=== PATIENT | female | born 1965 | race Caucasian/White ===

== ENCOUNTER → 2017-03-19 | Outpatient (CLI) | payer MEDICAID ==
--- NOTE | 2017-03-20 13:04 | BD ---
EXAMINATION TYPE: MG DEXA axial skeleton. DATE OF EXAM: 03/19/2017 COMPARISON: NONE CLINICAL HISTORY: PATIENT IS A 51 YR OLD FEMALE; N95.1 POST MENOPAUSAL Height: 63 Weight: 181 FRAX RISK QUESTIONS: Alcohol (3 or more units per day): NO Family History (Parent hip fracture): NO Glucocorticoids (More than 3mos): NO (Ex: prednisone, prednisolone, methylprednisolone, dexamethasone, and hydrocortisone). History of Fracture in Adulthood: NO Secondary Osteoporosis: NO 1. Type 1 Diabetes: NO 2. Hyperthyroidism: NO 3. Menopause before 45: NO 4. Malnutrition: NO 5. Chronic liver disease: NO Rheumatoid Arthritis: NO Current Tobacco Use: NO RISK FACTORS HISTORY OF: Family History of Osteoporosis: NONE KNOWN Active: YES Diet low in dairy products/other sources of calcium: NO Postmenopausal woman: HYST AT AGE 42 YRS OLD, STILL HAVE OVARIES Hyperparathyroidism: NO Adrenal Insufficiency: NO MEDICATIONS: Additional Medications: REFLUX MEDS PRN, Additional History: NONE TO NOTE EXAM MEASUREMENTS: Bone mineral densitometry was performed using the CPower System. Bone mineral density as measured about the Lumbar spine is: ----- L1-L4(G/cm2): 1.652 T Score Values are as follows: ----- L1: 3.0 ----- L2: 3.8 ----- L3: 4.8 ----- L4: 3.9 ----- L1-L4: 3.9 Bone mineral density FIRST BONE DENSITY STUDY FOR HER....BASELINE Bone mineral density about the R hip (g/cm2): 1.373 Bone mineral density about the L hip (g/cm2): 1.391 T Score values are as follows: -----R Neck: 2.5 -----L Neck: 2.3 -----R Total: 2.9 -----L Total: 3.0 Bone mineral density BASELINE STUDY FOR HER FRAX %'S: THERE IS A 3.6% CHANCE OF MAJOR OSTEOPOROTIC FX AND A 0.0% OF HIP FX...PROBABILITY OF FX IN 10 YRS TIME IMPRESSION: Normal (Values between +1 and -1 indicate normal bone mass). Consider repeating this study in 5 year s or sooner if there is some new clinical indication. FOR BOTH HIPS AND LUMBAR SPINE NOTE: T-SCORE=SD OF THE YOUNG ADULT MEAN.
--- NOTE | 2017-03-20 14:29 | MM ---
Reason for exam: screening (asymptomatic). Last mammogram was performed 1 year and 2 months ago. History: Patient is postmenopausal. Physical Findings: A clinical breast exam by your physician is recommended on an annual basis and results should be correlated with mammographic findings. MG 3D Screening Mammo W/Cad Bilateral CC and MLO view(s) were taken. Prior study comparison: February 02, 2016, bilateral MG 3d screening mammo w/cad. July 23, 2014, bilateral MG screening mammo w CAD. The breast tissue is extremely dense which could obscure a lesion on mammography. Finding: There are coarse heterogeneous, grouped/clustered calcifications in the middle position of the left breast 2cm from the nipple. There is a chronic nodularity bilaterally. New finding since February 02, 2016 and July 23, 2014. ASSESSMENT: Incomplete: need additional imaging evaluation, BI-RAD 0 RECOMMENDATION: Special view mammogram of the left breast. [facility] will attempt to contact patient to return for supplemental views.
== END | disposition home or self-care (01) ==
LOC: RADMAMWWP 06:58
PROVIDERS: ATTEND Obstetrics & Gynecology
DX: Z12.31 Encounter for screening mammogram for malignant neoplasm of breast (principal); N95.1 Menopausal and female climacteric states
CPT/HCPCS: 77080; 77063; G0202

== ENCOUNTER → 2017-03-22 | Outpatient (CLI) | payer MEDICAID ==
--- NOTE | 2017-03-22 09:16 | MM ---
Reason for exam: additional evaluation requested from abnormal screening. Last mammogram was performed less than 1 month ago. Physical Findings: Nurse did not find any significant physical abnormalities on exam. MG Work Up Mamm w CAD LT CC with magnification, LM with magnification, and LM view(s) were taken of the left breast. Prior study comparison: March 19, 2017, bilateral MG 3d screening mammo w/cad. February 02, 2016, bilateral MG 3d screening mammo w/cad. The breast tissue is extremely dense which could obscure a lesion on mammography. Finding: There are typically benign calcifications in the left breast. There is a chronic nodularity in the left breast. These results were verbally communicated with the patient and result sheet given to the patient on 03/22/17. ASSESSMENT: Probably benign, BI-RAD 3 RECOMMENDATION: Follow-up diagnostic mammogram of the left breast in 6 months.
== END | disposition home or self-care (01) ==
LOC: RADMAMWWP 08:23
PROVIDERS: ATTEND Obstetrics & Gynecology
DX: R92.8 Other abnormal and inconclusive findings on diagnostic imaging of breast (principal)

== ENCOUNTER → 2018-07-17 | Outpatient (CLI) | payer MEDICAID ==
--- NOTE | 2018-07-18 08:15 | MM ---
Reason for exam: screening (asymptomatic). Last mammogram was performed 1 year and 4 months ago. Physical Findings: A clinical breast exam by your physician is recommended on an annual basis and results should be correlated with mammographic findings. MG 3D Screening Mammo W/Cad Bilateral CC and MLO view(s) were taken. Prior study comparison: March 22, 2017, left breast MG work up mamm w CAD LT. March 19, 2017, bilateral MG 3d screening mammo w/cad. The breast tissue is heterogeneously dense. This may lower the sensitivity of mammography. There is chronic nodularity bilaterally. No significant changes when compared with prior studies. ASSESSMENT: Benign, BI-RAD 2 RECOMMENDATION: Routine screening mammogram of both breasts in 1 year.
== END | disposition home or self-care (01) ==
LOC: RADMAMWWP 07:03
PROVIDERS: ATTEND Obstetrics & Gynecology
DX: Z12.31 Encounter for screening mammogram for malignant neoplasm of breast (principal)
CPT/HCPCS: 77063; 77067

== ENCOUNTER → 2019-07-28 | Outpatient (CLI) | payer MEDICAID ==
--- NOTE | 2019-07-28 11:28 | MM ---
Reason for exam: screening (asymptomatic). Last mammogram was performed 1 year ago. History: Patient is postmenopausal. Physical Findings: A clinical breast exam by your physician is recommended on an annual basis and results should be correlated with mammographic findings. MG 3D Screening Mammo W/Cad Bilateral CC and MLO view(s) were taken. XCCL view(s) were taken of the right breast. Prior study comparison: July 17, 2018, bilateral MG 3d screening mammo w/cad. March 19, 2017, bilateral MG 3d screening mammo w/cad. February 02, 2016, bilateral MG 3d screening mammo w/cad. The breast tissue is heterogeneously dense. This may lower the sensitivity of mammography. There is chronic nodularity bilaterally. No significant changes when compared with prior studies. ASSESSMENT: Benign, BI-RAD 2 RECOMMENDATION: Routine screening mammogram of both breasts in 1 year.
== END | disposition home or self-care (01) ==
LOC: RADMAMWWP 07:04
PROVIDERS: ATTEND Obstetrics & Gynecology
DX: Z12.31 Encounter for screening mammogram for malignant neoplasm of breast (principal)
CPT/HCPCS: 77063; 77067

== ENCOUNTER → 2019-12-11 | Outpatient (CLI) | payer MEDICAID | END | disposition home or self-care (01) | LOC: LABWHC1 12:11 | PROVIDERS: ATTEND Pediatrics Pediatric Infectious Diseases | DX: Z11.59 Encounter for screening for other viral diseases (principal) | CPT/HCPCS: U0003; C9803 ==

== ENCOUNTER → 2019-12-14 | Outpatient (CLI) | payer MEDICAID | END | disposition home or self-care (01) | LOC: LABWHC1 08:11 | PROVIDERS: ATTEND Pediatrics Pediatric Infectious Diseases | DX: Z11.59 Encounter for screening for other viral diseases (principal) ==

== ENCOUNTER → 2020-01-13 | Outpatient (CLI) | payer MEDICAID ==
--- NOTE | 2020-01-13 14:35 | XR ---
EXAMINATION TYPE: PA chest with left rib series. DATE OF EXAM: 01/13/2020 Comparison: 02/25/2013 Clinical History: 54-year-old female R07.89 Chest Wall Pain TECHNIQUE: 5 views. Findings: Heart normal size. Small left pleural effusion with left basilar opacity. No appreciable pneumothorax . Right lung and pleural space appear clear. Pulmonary vasculature within normal limits. There are fractures of the fourth, sixth, seventh, eighth, ninth ribs. The seventh, eighth, ninth rib fractures are segmental. There is variable nondisplacement to mild displacement to half a shaft's width. Impression: 1. Small left pleural effusion with adjacent atelectasis and/or consolidation. No appreciable pneumot horax. 2. Fractures of the left fourth, sixth, seventh, eighth, and ninth ribs. The seventh, eighth, and macario th rib fractures are segmental fractures. This does not quite meet institutional criteria (which woul d be 4 consecutive levels) for flail chest. Correlate with patient's symptoms.
== END | disposition home or self-care (01) ==
LOC: RADXRMAIN 12:31
PROVIDERS: ATTEND Internal Medicine
DX: S22.42XA Multiple fractures of ribs, left side, initial encounter for closed fracture (principal); J90 Pleural effusion, not elsewhere classified; J98.11 Atelectasis

== ENCOUNTER → 2020-01-27 | Outpatient (CLI) | payer MEDICAID ==
[2020-01-27 08:38] LABS: Basophils # (A) 0.1 k/uL (0-0.2); Basophils % (A) 1 %; Eosinophils # (A) 0.3 k/uL (0-0.7); Eosinophils % (A) 5 %; HCT 41.7 % (34.0-46.0); HGB 13.2 gm/dL (11.4-16.0); Lymphocytes # (A) 2.1 k/uL (1.0-4.8); Lymphocytes % (A) 33 %; MCH 28.2 pg (25.0-35.0); MCHC 31.6 g/dL (31.0-37.0); MCV 89.5 fL (80.0-100.0); Mean Platelet Volume 7.3; Monocytes # (A) 0.4 k/uL (0-1.0); Monocytes % (A) 6 %; Neutrophils # (A) 3.3 k/uL (1.3-7.7); Neutrophils % (A) 51 %; Platelet Count 255 k/uL (150-450); RBC 4.66 m/uL (3.80-5.40); RDW 13.7 % (11.5-15.5); WBC 6.4 k/uL (3.8-10.6)
[2020-01-27 16:36] LABS: African American GFR (CKD) 112.3 (60.0-200.0); Albumin 4.5 g/dL (3.80-4.90); Albumin/Globulin Ratio 1.88 (1.60-3.17); Anion Gap 7.7 mmol/L (4.00-12.00); BUN/Creat Ratio 32.86 Ratio (12.00-20.00); Calcium 9.9 mg/dL (8.7-10.3); Carbon Dioxide 27.3 mmol/L (21.6-31.8); Chol/HDL Ratio 6.1; Globulin 2.4 g/dL (1.6-3.3); LDL Cholesterol,Calculated 163.6 mg/dL (0.0-131.0); Non-African American GFR(CKD) 96.9 (60.0-200.0); Potassium 4.4 mmol/L (3.5-5.5); Total Bilirubin 0.4 mg/dL (0.2-1.2); Total Protein 6.9 g/dL (6.2-8.2); VLDL Calculation 45.4 mg/dL (5.00-40.00)
== END | disposition home or self-care (01) ==
LOC: LABWHC1 07:22
PROVIDERS: ATTEND Internal Medicine
DX: E78.2 Mixed hyperlipidemia (principal); K21.0 Gastro-esophageal reflux disease with esophagitis
CPT/HCPCS: 36415; 80053; 80061; 84443; 85025

== ENCOUNTER → 2021-02-15 | Outpatient (CLI) | payer OTHER ==
--- NOTE | 2021-02-15 14:23 | MM ---
Reason for exam: screening (asymptomatic). Last mammogram was performed 1 year and 7 months ago. History: Patient is postmenopausal. Physical Findings: A clinical breast exam by your physician is recommended on an annual basis and results should be correlated with mammographic findings. MG 3D Screening Mammo W/Cad Bilateral CC and MLO view(s) were taken. Prior study comparison: July 28, 2019, bilateral MG 3d screening mammo w/cad. July 17, 2018, bilateral MG 3d screening mammo w/cad. The breast tissue is heterogeneously dense. This may lower the sensitivity of mammography. There are benign appearing round calcifications bilaterally. There is chronic nodularity in the right breast, stable, smaller and in the left breast, stable, patient calcified. There is no discrete abnormality. ASSESSMENT: Benign, BI-RAD 2 RECOMMENDATION: Routine screening mammogram of both breasts in 1 year.
== END | disposition home or self-care (01) ==
LOC: RADMAMWWP 08:05
PROVIDERS: ATTEND Obstetrics & Gynecology
DX: Z12.31 Encounter for screening mammogram for malignant neoplasm of breast (principal); Z78.0 Asymptomatic menopausal state
CPT/HCPCS: 77063; 77067

== ENCOUNTER → 2021-07-04 | Outpatient (CLI) | payer OTHER ==
--- NOTE | 2021-07-04 12:58 | CT ---
EXAMINATION TYPE: CT sinus wo con DATE OF EXAM: 07/04/2021 COMPARISON: NONE HISTORY: sinusitis CT DLP: 612 mGycm. Automated Exposure Control for Dose Reduction was Utilized. TECHNIQUE: CT scan of the sinuses is performed without contrast, axial images are obtained, coronal r eformatted images are also reviewed. FINDINGS: The paranasal sinuses including the frontal, ethmoid, sphenoid, and maxillary sinuses bila terally are well-aerated without abnormal opacification or suspicious air-fluid levels. There is hyp oplastic or nonformed right frontal sinus The ostiomeatal complex is patent bilaterally on the carter l images. Nasal septum slightly deviated to right of midline. Visualized portion of mastoid air cells show no abnormal opacification. The globes are intact bilate rally. IMPRESSION: The paranasal sinuses are clear and the ostiomeatal complex is patent bilaterally.
== END | disposition home or self-care (01) ==
LOC: RADCTMAIN 12:10
PROVIDERS: ATTEND Otolaryngology
DX: J32.9 Chronic sinusitis, unspecified (principal)
CPT/HCPCS: 70486

== ENCOUNTER → 2022-05-07 | Outpatient (CLI) | payer OTHER ==
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
--- NOTE | 2022-05-08 09:35 | MM ---
Reason for Exam: Screening (asymptomatic). Last mammogram was performed 1 year(s) and 3 month(s) ago. Patient History: Menarche at age 9. First Full-Term at age 25. Hysterectomy at age 43. Postmenopausal. Risk Values: Ginette 5 year model risk: 1.6%. NCI Lifetime model risk: 9.3%. Prior Study Comparison: 07/17/2018 Bilateral Screening Mammogram, [facility]. 07/28/2019 Bilateral Screening Mammogram, [facility]. 02/15/2021 Bilateral Screening Mammogram, [facility]. Tissue Density: The breast tissue is heterogeneously dense. This may lower the sensitivity of mammography. Findings: Analyzed By CAD. There is no suspicious group of microcalcifications or new suspicious mass in either breast. Stable benign-appearing round calcifications bilaterally. Chronic nodularity within both breasts. No significant change from prior exams. Overall Assessment: Benign, BI-RAD 2 Management: Screening Mammogram of both breasts in 1 year. A clinical breast exam by your physician is recommended on an annual basis and results should be correlated with mammographic findings. Electronically signed and approved by: Jony Patel D.O.
== END | disposition home or self-care (01) ==
LOC: RADMAMWWP 07:37
PROVIDERS: ATTEND Internal Medicine
DX: Z12.31 Encounter for screening mammogram for malignant neoplasm of breast (principal); M85.851 Other specified disorders of bone density and structure, right thigh; Z78.0 Asymptomatic menopausal state
CPT/HCPCS: 77063; 77067; 77080

== ENCOUNTER → 2022-05-16 | Outpatient (CLI) | payer OTHER ==
--- NOTE | 2022-05-16 11:20 | CA ---
Exercise Stress Test Report Name: Emma Judd Exam Date: 05/16/2022 09:36 Exam Location: [place] Ht (in): 64 Wt (lb): 195 BSA: 1.94 Ordering Phys: Mauricio Baron MD Referring Phys: Mary Breen DO Technologist: Simba Ramirez Age: 56 Gender: F : 1965 Procedure CPT: Indications: I10 hypertention ICD-10 Codes: Patient History: ELEVATED CHOLESTEROL Medications: BACLOFEN, PRATOPROZOLE, ROSUVASTATIN, ZOLOFT, ZINC, CoCu10 Meds past 24 hrs: Pretest Chest Pain: STRESS TEST [place] Protocol Exercise Duration (min:sec): 09:[address] Depressions (mm): Angina Score: Francois Score: Resting HR (bpm): 75 Peak HR (bpm): 163 Resting BP (mmHg): 136 / 89 Peak BP (mmHg): 207 / 96 MPHR: 162 Target HR: 138 % MPHR: 101 METS: 11.5 Total Dose: Peak Dose: Atropine: Double Product: 72534 BP Response: Stress Termination: Stress Symptoms: Stress Summary: ECG ANALYSIS Resting ECG: Normal sinus rhythm with right bundle branch block Stress ECG: Patient exercised on Milan protocol for a total off 10 minutes achieving 11 mets 85% of predicted maximal heart rate without chest pain or diagnostic ST segment depression CONCLUSIONS Good exercise tolerance Inconclusive EKG part of the stress test due to baseline EKG abnormalities Dr. Jimbo Benz MD (Electronically Signed) Final Date: 16 May 2022 11:20
--- NOTE | 2022-05-17 17:05 | NM ---
EXAMINATION TYPE: NM stress cardiolite complete DATE OF EXAM: 05/16/2022 COMPARISON: NONE HISTORY: Chest pain TECHNIQUE: After the intravenous administration of 9.5 mCi Tc 99m Sestamibi - Cardiolite resting SPE CT images acquired 60 minutes post injection. At peak stress 24.5 mCi Tc 99m Sestamibi - Stress images obtained 10 minutes post injection The patient was stressed with 0.4mg Lexiscan. FINDINGS: No fixed defects are evident No reversible stress defects on Spect images Wall motion is normal Ejection fraction is calculated to be 69% %. IMPRESSION: 1. No stress-induced ischemic changes.
== END | disposition home or self-care (01) ==
LOC: RADNMMAIN 07:46
PROVIDERS: ATTEND Internal Medicine
DX: I44.4 Left anterior fascicular block (principal); I10 Essential (primary) hypertension; R94.31 Abnormal electrocardiogram [ECG] [EKG]
CPT/HCPCS: 93017; 78452; A9500

== ENCOUNTER 2022-08-17 06:25 | Day surgery (SDC) | payer OTHER ==
[~2022-08-17 06:25] MED LIST: LACTATED RINGERS 1,000 ML IV SCH; LIDOCAINE 1% (10MG/ML) FOR IV START INTRADERMA PRN
[2022-08-17] MEDS ORDERED: ONDANSETRON 4 MG/2 ML VIAL IVP PRN (07:00)
[2022-08-17 07:12] VITALS: TEMP 97.2
[2022-08-17] MEDS ORDERED: LIDOCAINE 2% INJ 20 MG/ML (2 ML VIAL) ONE (07:39)
[2022-08-17] MEDS ORDERED: PROPOFOL 10 MG/ML 20 ML VIAL IV ONE (07:39)
--- NOTE | 2022-08-17 08:02 | P.PCN ---
Date of Procedure: 08/17/22 Procedure(s) Performed: Brief history: Patient is a 57-year-old pleasant white female pleasant scheduled for an elective upper endoscopy as well as colonoscopy as a part of evaluation of GERD and screening for colon cancer. She is presently on Pepcid 20 mg twice daily and still has breakthrough symptoms almost 3-4 times a week. She reports no dysphagia or odynophagia. Her last colonoscopy was 10 years ago. Procedure performed: Esophagogastroduodenoscopy with biopsy Colonoscopy Preoperative diagnosis: GERD Screening for colon cancer Anesthesia: MAC Procedure: After informed consent was obtained from the patient was brought into the endoscopy unit and IV sedation was administered by anesthesia under continuous monitoring. Initially upper endoscopy was done. The Olympus GF 160 video endoscope was inserted inserted into the mouth and esophagus intubated without any difficulty and was gradually advanced into the stomach and duodenum and carefully examined. The bulb and second part of the duodenum appeared normal. The scope was then withdrawn into the stomach adequately insufflated with air and upon careful examination the antrum revealed multiple erosions and biopsies were done from this area. Because of the body, cardia and fundus appeared normal. The scope was then withdrawn into the esophagus. The GE junction was located at 40 cm to the incisors. It appeared regular with one superficial erosion consistent with LA grade A reflux esophagitis. Rest of the esophagus appeared normal. Patient tolerated the procedure well. At this time the patient continued to remain sedation. Initial digital rectal examination was normal. Olympus CF 160 video colonoscope was then inserted into the rectum and gradually advanced to the cecum without any difficulty. Careful examination was performed as the scope was gradually being withdrawn. The prep was excellent. The cecum, ascending colon, transverse colon, descending colon, sigmoid colon and rectum appeared normal. Retroflexion was performed in the rectum and no lesions were noted. Patient tolerated the procedure well. Impression: 1. Upper endoscopy revealed antral erosive gastritis and LA grade A reflux esophagitis 2. Colonoscopy was within normal limits with no evidence of colorectal neoplasia Recommendations: Findings of this examination were discussed with the patient as well as her family. She was advised to start on omeprazole 20 mg daily and take Pepcid only as needed. Recommend repeat screening colonoscopy in 10 years.
[2022-08-17 08:24] VITALS: BP 102/64; PULSE 67; RESP 20
== END 2022-08-17 08:39 | disposition home or self-care (01) ==
LOC: ORWHC2ENDO 06:25
PROVIDERS: ATTEND Internal Medicine Gastroenterology
DX: Z12.11 Encounter for screening for malignant neoplasm of colon (principal); K29.50 Unspecified chronic gastritis without bleeding; K21.00 Gastro-esophageal reflux disease with esophagitis, without bleeding
CPT/HCPCS: 88305; 45378; 43239; J2704; J2001

== ENCOUNTER → 2023-07-23 | Outpatient (CLI) | payer OTHER ==
--- NOTE | 2023-07-24 20:03 | MM ---
Reason for Exam: Screening (asymptomatic). Last mammogram was performed 1 year(s) and 2 month(s) ago. Patient History: Menarche at age 9. First Full-Term at age 25. Hysterectomy at age 43. Postmenopausal. Risk Values: Ginette 5 year model risk: 1.8%. NCI Lifetime model risk: 8.9%. Prior Study Comparison: 07/28/2019 Bilateral Screening Mammogram, [facility]. 02/15/2021 Bilateral Screening Mammogram, [facility]. 05/07/2022 Bilateral MG 3D screening mammo w/cad, [facility]. Tissue Density: The breast tissue is heterogeneously dense. This may lower the sensitivity of mammography. Findings: Analyzed By CAD. Chronic nodularity on the left with unchanged calcifications. Unchanged areas of bilateral asymmetric density also noted. There is no suspicious group of microcalcifications or new suspicious mass in either breast. Overall Assessment: Benign, BI-RAD 2 Management: Screening Mammogram of both breasts in 1 year. . Patient should continue monthly self-breast exams. A clinical breast exam by your physician is recommended on an annual basis. This exam should not preclude additional follow-up of suspicious palpable abnormalities. Note on Ginette scores and lifetime risk: 1. A Ginette score greater than 3% is considered moderate risk. If this is the case, consider specialist referral to assess eligibility for a risk reducing agent. 2. If overall lifetime risk for the development of breast cancer is 20% or higher, the patient may qualify for future screening with alternating mammogram and breast MRI. Electronically signed and approved by: Della Alonso M.D. Radiologist
== END | disposition home or self-care (01) ==
LOC: RADMAMWWP 07:11
PROVIDERS: ATTEND Obstetrics & Gynecology
DX: Z12.31 Encounter for screening mammogram for malignant neoplasm of breast (principal); Z78.0 Asymptomatic menopausal state
CPT/HCPCS: 77063; 77067

== ENCOUNTER → 2024-10-20 | Outpatient (CLI) | payer OTHER ==
--- NOTE | 2024-10-20 07:59 | MM ---
Reason for Exam: Screening (asymptomatic). Last mammogram was performed 1 year(s) and 3 month(s) ago. Patient History: Menarche at age 9. First Full-Term at age 25. Hysterectomy at age 43. Postmenopausal. Risk Values: Ginette 5 year model risk: 1.8%. NCI Lifetime model risk: 8.6%. Prior Study Comparison: 02/15/2021 Bilateral Screening Mammogram, [facility]. 05/07/2022 Bilateral MG 3D screening mammo w/cad, [facility]. 07/23/2023 Bilateral MG 3D screening mammo w/cad, [facility]. Tissue Density: The breasts are heterogeneously dense, which may obscure small masses. Findings: Analyzed By CAD. Right breast: There is no suspicious group of microcalcifications or new suspicious mass. Benign-appearing calcifications right breast. Left breast: There is no suspicious group of microcalcifications or new suspicious mass. Benign-appearing calcifications left breast. Overall Assessment: Benign, BI-RAD 2 Management: Screening Mammogram of both breasts in [address] [facility] will attempt to contact patient to return for supplemental views and ultrasound if indicated. Patient should continue monthly self-breast exams. A clinical breast exam by your physician is recommended on an annual basis. This exam should not preclude additional follow-up of suspicious palpable abnormalities. Note on Ginette scores and lifetime risk: 1. A Ginette score greater than 3% is considered moderate risk. If this is the case, consider specialist referral to assess eligibility for a risk reducing agent. 2. If overall lifetime risk for the development of breast cancer is 20% or higher, the patient may qualify for future screening with alternating mammogram and breast MRI. [facility], , 10/20/2024 7:56 AM. Electronically signed and approved by: Devyn Park DO
== END | disposition home or self-care (01) ==
LOC: RADMAMWWP 07:01
PROVIDERS: ATTEND Internal Medicine
DX: Z12.31 Encounter for screening mammogram for malignant neoplasm of breast (principal); R92.333 Mammographic heterogeneous density, bilateral breasts; R92.1 Mammographic calcification found on diagnostic imaging of breast; Z78.0 Asymptomatic menopausal state
CPT/HCPCS: 77063; 77067

== ENCOUNTER → 2024-10-22 | Outpatient (CLI) | payer OTHER ==
[~2024-10-22] MED LIST changes: -LACTATED RINGERS 1,000 ML IV SCH; -LIDOCAINE 1% (10MG/ML) FOR IV START INTRADERMA PRN; +REGADENOSON 0.4 MG/5 ML SYRINGE IV PRN
--- NOTE | 2024-10-22 11:54 | NM ---
EXAMINATION TYPE: NM stress lexiscan cardiolite DATE OF EXAM: 10/22/2024 COMPARISON: Prior stress test May 16, 2022 CLINICAL INDICATION: Female, 59 years old with history of I44.4 LEFT ANTERIOR FASICULAR BLOCK; histor y of hypercholesteremia. TECHNIQUE: After the intravenous administration of 9.7 mCi Tc 99m Sestamibi - Cardiolite resting SPE CT images acquired 45 minutes post injection. The patient received 0.4mg Lexiscan, 24 mCi Tc 99m Sestamibi - Stress images obtained 31 minutes post injection FINDINGS: Review of stress and rest SPECT images demonstrates no distinct perfusion abnormality. Gated analysi s shows normal wall motion with an estimated left ventricular ejection fraction of 71 %. IMPRESSION: No scintigraphic evidence for reversible ischemia. [facility], , 10/22/2024 11:51 AM
--- NOTE | 2024-10-22 14:41 | CA ---
Lexiscan Nuclear Stress Test Report Name: Emma Judd Exam Date: 10/22/2024 09:41 Exam Location: [place] Stress Ht (in): 64 Wt (lb): 181 BSA: 1.87 Ordering Phys: Mauricio Baron MD Referring Phys: Mauricio Baron MD Technologist: JENNIFER BARRIENTOS Age: 59 Gender: F : 1965 Procedure CPT: Indications: I44.4 LEFT ANTERIOR FASICULAR BLOCK ICD-10 Codes: Patient History: LEFT ANTERIOR FASICULAR BLOCK Medications: ZOLOFT,,,, ATORVASTATIN,,,, CELEBRIX,,,, IBUPROFEN,,,, OMEPRAZOLE,,, Meds past 24 hrs: Pretest Chest Pain: STRESS TEST Lexiscan Protocol Exercise Duration (min:sec): 02:[address] Depressions (mm): Angina Score: Francois Score: Resting HR (bpm): 62 Peak HR (bpm): 93 Resting BP (mmHg): 128 / 84 Peak BP (mmHg): 139 / 78 MPHR: 159 Target HR: 135 % MPHR: 58 METS: 1.0 Total Dose: Peak Dose: Atropine: Double Product: 73576 BP Response: Stress Termination: INFUSION COMPLETE Stress Symptoms: NO SYMPTOMS Stress Summary: ECG ANALYSIS Resting ECG: Stress ECG: CONCLUSIONS Reason for test. Abnormal EKG No ECG evidence for ischemia or arrhythmia Nuclear portion will be reported separately Dr. Justin Santana MD (Electronically Signed) Final Date: 22 Oct 2024 14:40
== END | disposition home or self-care (01) ==
LOC: RADNMMAIN 10-19 08:56
PROVIDERS: ATTEND Internal Medicine
DX: I44.4 Left anterior fascicular block (principal); E78.00 Pure hypercholesterolemia, unspecified; R94.31 Abnormal electrocardiogram [ECG] [EKG]
CPT/HCPCS: 93017; 78452; A9500; J2785